=== PATIENT | female | born 1965 | race Hispanic/Latino ===

== ENCOUNTER 2023-01-21 09:51 | Emergency (ER) | payer SELFPAY ==
[~2023-01-21] VITALS: Ht 152.4 cm; Wt 86.2 kg
[2023-01-21] MEDS ORDERED: ALBUTEROL/IPRATROPIUM 3 ML NEB NEB STA (10:35)
[2023-01-21] MEDS ORDERED: ALBUTEROL/IPRATROPIUM 3 ML NEB NEB ONE (10:45)
[2023-01-21] MEDS ORDERED: ALBUTEROL/IPRATROPIUM 3 ML NEB ONE (10:51)
[2023-01-21] MEDS ORDERED: ALBUTEROL SULF 0.083% NEB SOLN 3 ML NEB NEB STA (11:26)
[2023-01-21] MEDS ORDERED: ALBUTEROL SULF 0.083% NEB SOLN 3 ML NEB ONE (11:43)
[2023-01-21] MEDS ORDERED: PREDNISONE20 MG PO (12:14)
[2023-01-21] MEDS ORDERED: LEVOFLOXACIN250 MG PO (12:14)
[2023-01-21] MEDS ORDERED: BENZONATATE100 MG PO (12:17)
[2023-01-21] MEDS ORDERED: VENTOLIN HFA18 GM INH (12:18)
== END 2023-01-21 12:34 | disposition home or self-care (01) ==
LOC: FSED 09:56
DX: R05.9 Cough, unspecified (principal); J40 Bronchitis, not specified as acute or chronic; I10 Essential (primary) hypertension
CPT/HCPCS: 71046; 93005; 99283